=== PATIENT | female | born 1980 | race Two or more races ===

== ENCOUNTER 2023-11-17 08:32 | Outpatient (CLI) | payer OTHER ==
[~2023-11-17 08:32] MED LIST: BUCALSEP SPRAY30 ML MM; CELLCEPT500 MG PO; CIPRO500 MG PO; CLARITIN10 M1 PO; COZAAR25 MG; COZAAR50 MG; FLEXERIL10 MG PO; FLONASE16 GM NASAL; GILTUSS TR TAB1 EACH PO; IMURAN50 MG; INTESTINEX680 MG PO; LASIX20 MG; ORPH100T PO; PLAQUENIL PO; PREDNISOLON5 MG/5 ML; RELAGESIC TABLE1 TAB PO; SYMBASTATIN; TESSALON PERLE100 M1 PO; TRAM1TAB98 PO; ULTRAM50 MG PO; VASOTEC5 MG; ZANTAC300 MG PO; ZITHROMAX TRI-500 MG PO; ZYRTEC10 MG PO
== END 2023-11-17 08:35 | disposition home or self-care (01) ==
LOC: TOM 08:32
PROVIDERS: ATTEND Internal Medicine Gastroenterology
DX: C18.9 Malignant neoplasm of colon, unspecified (principal); K63.5 Polyp of colon; K56.600 Partial intestinal obstruction, unspecified as to cause

== ENCOUNTER 2024-06-01 08:22 | Outpatient (CLI) | payer OTHER | END 2024-06-01 08:27 | disposition home or self-care (01) | LOC: TOM 08:22 | DX: K40.30 Unilateral inguinal hernia, with obstruction, without gangrene, not specified as recurrent (principal); N18.6 End stage renal disease | CPT/HCPCS: 74177; Q9965 ==

== ENCOUNTER → 2024-06-01 | Outpatient (CLI) | payer OTHER | END | disposition home or self-care (01) | LOC: NUCLEAR 09:35 | DX: I13.11 Hypertensive heart and chronic kidney disease without heart failure, with stage 5 chronic kidney disease, or end stage renal disease (principal); N18.6 End stage renal disease; R53.1 Weakness; R42 Dizziness and giddiness ==